=== PATIENT | female | born 1965 | race Caucasian/White ===

== ENCOUNTER 2021-02-09 15:19 | Emergency (ER) | payer BC ==
[~2021-02-09 15:19] MED LIST: ASPIRIN EC81 MG PO; FLAGYL500 MG PO; LEVAQUIN500 MG PO; NITROGLYCERIN0.4 MG SL
[2021-02-09 16:46] LABS: HEMOGLOBIN 16.6 gm/dl (12.3-15.3); RED BLOOD COUNT 5.1 M/UL (4.00-5.10); WHITE BLOOD COUNT 7.3 K/UL (4.5-11.0)
[2021-02-09 17:07] LABS: BUN/CREATININE RATIO 15 (0-10)
[2021-02-09] MEDS ORDERED: NORFLEX 100 MG100 MG PO (20:28)
[2021-02-09] MEDS ORDERED: Voltaren Gel 1 % TOP (20:28)
== END 2021-02-09 20:48 | disposition home or self-care (01) ==
LOC: ER1 15:19
PROVIDERS: Physician Assistant
DX: R10.11 Right upper quadrant pain (principal); F17.200 Nicotine dependence, unspecified, uncomplicated; Z90.49 Acquired absence of other specified parts of digestive tract; Z90.89 Acquired absence of other organs; Z90.710 Acquired absence of both cervix and uterus; Z88.1 Allergy status to other antibiotic agents; Z87.448 Personal history of other diseases of urinary system
CPT/HCPCS: 71045; 80053; 81001; 82550; 82553; 83690; 83874; 84484; 85025; 93005; 96374; 99284; J1885; Q9967

== ENCOUNTER → 2021-02-22 | Outpatient (CLI) | payer BC ==
[~2021-02-22] MED LIST changes: +NORFLEX 100 MG100 MG PO; +Voltaren Gel 1 % TOP; +[UNRECOGNIZED DRUG - REMARK] PO
[2021-02-22 09:35] LABS: HEMOGLOBIN 16.3 gm/dl (12.3-15.3); RED BLOOD COUNT 5.01 M/UL (4.00-5.10); WHITE BLOOD COUNT 6.7 K/UL (4.5-11.0)
[2021-02-22 09:49] LABS: BUN/CREATININE RATIO 11 (0-10)
== END ==
LOC: CATH 08:38
PROVIDERS: Internal Medicine Cardiovascular Disease
DX: I25.118 Atherosclerotic heart disease of native coronary artery with other forms of angina pectoris (principal); M19.90 Unspecified osteoarthritis, unspecified site; G25.81 Restless legs syndrome; F17.210 Nicotine dependence, cigarettes, uncomplicated; G43.909 Migraine, unspecified, not intractable, without status migrainosus; Z88.1 Allergy status to other antibiotic agents; Z79.82 Long term (current) use of aspirin; Z79.899 Other long term (current) drug therapy
CPT/HCPCS: 36415; 80048; 85025; 85347; 85610; 85730; 93005; 93571; 99152; 99153; C1769; C1887; C1894; J0461; J1644; J2250; J3010; J7030; Q9967

== ENCOUNTER → 2021-09-24 | Outpatient (CLI) | payer BC | LOC: RAD 13:43 | DX: S20.211A Contusion of right front wall of thorax, initial encounter (principal); R07.82 Intercostal pain; R07.1 Chest pain on breathing; S22.31XA Fracture of one rib, right side, initial encounter for closed fracture | CPT/HCPCS: 71111 ==